=== PATIENT | female | born 1945 | race Caucasian/White ===

== ENCOUNTER 2016-07-16 07:57 | Day surgery (SDC) | payer MEDICARE, BC ==
[~2016-07-16] VITALS: Ht 154.9 cm; Wt 48.2 kg
[~2016-07-16 07:57] MED LIST: KLONOPIN0.5 MG PO; PHENERGAN25 M1 PO; PREMARIN0.3 MG PO; SYNTHROID75 MCG PO; SYNTHROID88 MCG PO; ULTRAM50 MG PO; VITAMIN D31000 UNIT PO; ZANTAC150 MG PO
[2016-07-16] MEDS ORDERED: SYNTHROID88 MCG PO (08:42)
[2016-07-16] MEDS ORDERED: PRAVACHOL20 MG PO (08:45)
[2016-07-16] MEDS ORDERED: BAYER CHEWABLE81 MG PO (08:45)
[2016-07-16 08:51] VITALS: BP 108/73; Ht 154.9 cm; Wt 48.2 kg
[2016-07-16 09:38] LABS: HEMATOCRIT 41.5 % (36.0-48.0); HEMOGLOBIN 13.6 g/dL (12-16); MCH 28.3 pg (26.0-34.0); MCHC 32.8 g/dL (31.0-37.0); MCV 86.3 fL (80.0-100.0); MEAN PLATELET VOLUME 11.3 fL (7.4-10.4); RBC 4.81 10x6/uL (4.00-5.40); RDW 13.4 % (11.5-14.5); WBC 4.9 10x3/uL (4.8-10.8)
--- NOTE | 2016-07-16 11:45 | NUR ---
PT SITTING UP WITH HOB ELEVATED. NO C/O N/V. TOLERATING FULL LIQUIDS. VSS. WILL MONITOR.
--- NOTE | 2016-07-16 12:02 | NUR ---
1200-IV D/C'D, PT TOLERATED. CATHETER INTACT NOW UP OOB. VOIDED WITHOUT DIFFICULTY. DRESSING FOR DISCHARGE.
--- NOTE | 2016-07-16 12:13 | NUR ---
1210- DISCHARGE INSTRUCTIONS COMPLETED, PAPERWORK SIGNED. VERBALIZES UNDERSTANDING.
--- NOTE | 2016-09-09 10:17 | OP ---
PATIENT NAME: UBALDO MOORE MEDICAL RECORD: [id number] :41 LOCATION:D.OPS ADMISSION DATE: SURGEON: HIRAM WOODARD MD DATE OF OPERATION: 07/16/2016 PREOPERATIVE DIAGNOSIS: History of Shi esophagus. POSTOPERATIVE DIAGNOSIS: History of Shi esophagus with apparent regression some of the Shi esophagus. PROCEDURE: Esophagogastroduodenoscopy with antral and distal esophageal biopsies. SURGEON: Hiram Woodard MD BITUMEN PLANT OPERATOR: None. BLOOD LOSS: Minimal. ANESTHESIA: IV sedation. COMPLICATIONS: None. Reason for the anesthesia staff being present during the procedure includes anxiety regarding the procedure. ENDOSCOPIC COURSE: The patient was conveyed to the endoscopy suite electively on 07/16/2016. IV sedation was induced by the anesthesia staff. A bite block was inserted. A gastroscope was inserted into the mouth. It was advanced easily into the hypopharynx. The esophagus was easily intubated as were the stomach and duodenum. Upon withdrawal, retroflexed and angulus views were obtained. Antral biopsies were obtained. Four quadrant biopsies were obtained in the distal esophagus. The Shi's was short segment Shi's. The endoscope was then withdrawn under direct vision. I will see the patient in my office in 2-3 weeks to discuss the results of the biopsies. I will plan for her next surveillance upper endoscopy to be in the GI lab in 2 years. TRANSINT:[id number] Voice Confirmation ID: [id number] DOCUMENT ID: [id number] HIRAM WOODARD MD at 1017 CC: ANIL AGUILAR DO [id number] DICTATION DATE: 07/16/16 1104 LAP HAND TOOL: 07/16/16 1117 [facility] 07/16/[address] [facility] [address] [place] [address]
--- NOTE | 2016-09-09 10:17 | HP ---
PATIENT: UBALDO MOORE MEDICAL RECORD: [id number] ACCOUNT: [id number] LOCATION:[facility] : 41 ADMISSION DATE: 07/16/16 HISTORY AND PHYSICAL EXAMINATION CHIEF COMPLAINT: Shi's. HISTORY OF PRESENT ILLNESS: The patient has Shi's esophagus. She is here for surveillance upper endoscopy with biopsies. She does not have much reflux. She does have some epigastric abdominal pain. No nausea, no vomiting. No blood in her stools. The patient has undergone a Michel fundoplication by Dr. Osman in the past. SOCIAL HISTORY: Former smoker. 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 She reported to the nurse watch electrician that she had some reflux, fibromyalgia, arthritis, anxiety, depression, spinal stenosis, hysterectomy, partial thyroidectomy, ORIF of hip, also ORIF of left shoulder. REVIEW OF SYSTEMS: Negative for coronary artery disease or hypertension. Negative for renal disease or hepatitis. PHYSICAL EXAMINATION: GENERAL: The patient does not appear acutely ill. She does not appear chronically ill. VITAL SIGNS: Reviewed. HEAD: External ears appear normal. EYES: Extraocular movements are intact. NECK: Trachea is midline. CHEST: No intercostal retractions. PULMONARY: Nonlabored, no stridor. ABDOMEN: Tenderness in the epigastrium. IMPRESSION: Shi esophagus. PLAN: Surveillance upper endoscopy with biopsies. TRANSINT:[id number] Voice Confirmation ID: [id number] DOCUMENT ID: [id number] CARMELO WOODARD MD at 1017 CC: ANIL AGUILAR DO [id number] DICTATION DATE: 07/16/16 1050 HALL TENDER: 07/16/16 1102 [facility] 07/16/16 [id number] [place] [address]
== END 2016-07-16 12:15 | disposition home or self-care (01) ==
LOC: D.OPS 07:57
PROVIDERS: Anesthesiology
DX: K22.70 Barrett's esophagus without dysplasia (principal); K21.9 Gastro-esophageal reflux disease without esophagitis; K29.50 Unspecified chronic gastritis without bleeding; E03.9 Hypothyroidism, unspecified; M79.7 Fibromyalgia; M19.90 Unspecified osteoarthritis, unspecified site; F32.9 Major depressive disorder, single episode, unspecified; F41.9 Anxiety disorder, unspecified; M48.00 Spinal stenosis, site unspecified; Z86.73 Personal history of transient ischemic attack (TIA), and cerebral infarction without residual deficits; Z87.891 Personal history of nicotine dependence

== ENCOUNTER → 2016-07-29 08:18 | Outpatient (CLI) | payer MEDICARE, BC ==
[~2016-07-29 08:18] MED LIST changes: +BAYER CHEWABLE81 MG PO; +PRAVACHOL20 MG PO
== END | disposition home or self-care (01) ==
LOC: D.CT 07-24 09:00
DX: R10.9 Unspecified abdominal pain (principal)

== ENCOUNTER → 2016-08-03 07:57 | Outpatient (CLI) | payer MEDICARE, BC | END | disposition home or self-care (01) | LOC: D.NM 07-29 08:15 | DX: R07.81 Pleurodynia (principal) ==

== ENCOUNTER → 2016-11-30 08:58 | Outpatient (CLI) | payer MEDICARE, BC | END | disposition home or self-care (01) | LOC: D.CT 08:58 | DX: R91.1 Solitary pulmonary nodule (principal) ==

== ENCOUNTER → 2017-04-14 11:57 | Outpatient (CLI) | payer MEDICARE, BC | END | disposition home or self-care (01) | LOC: D.RAD 11:45 | DX: R93.7 Abnormal findings on diagnostic imaging of other parts of musculoskeletal system (principal) ==

== ENCOUNTER → 2017-04-26 16:18 | Outpatient (CLI) | payer MEDICARE, BC | END | disposition home or self-care (01) | LOC: D.MAMMO 15:00 | DX: Z12.31 Encounter for screening mammogram for malignant neoplasm of breast (principal) ==

== ENCOUNTER → 2017-08-11 15:44 | Outpatient (CLI) | payer MEDICARE, BC | END | disposition home or self-care (01) | LOC: D.MAMMO 13:00 | DX: Z12.31 Encounter for screening mammogram for malignant neoplasm of breast (principal) ==

== ENCOUNTER 2017-10-17 19:16 | Emergency (ER) | payer MEDICARE, BC ==
[2017-10-17 19:47] LABS: BASOPHILS 0.8 % (0-2); EOSINOPHILS 3.5 % (0-7); HEMATOCRIT 40.3 % (36.0-48.0); HEMOGLOBIN 12.9 g/dL (12-16); IMMATURE GRANULOCYTES 0.3 % (0-5); LYMPHOCYTES 36.3 % (15-50); MCV 87.4 fL (80.0-100.0); MEAN PLATELET VOLUME 10.3 fL (7.4-10.4); MONOCYTES 9.6 % (2-11); NEUTROPHILS 49.5 % (40-80); PLATELET COUNT 340 10x3/uL (130-400); RBC 4.61 10x6/uL (4.00-5.40); RDW 14.9 % (11.5-14.5); WBC 7.8 10x3/uL (4.8-10.8)
[2017-10-17 20:00] LABS: ALBUMIN 3.7 g/dL (3.4-5.0); ALKALINE PHOSPHATASE 89 U/L (46-116); ALT (SGPT) 25 U/L (10-68); BILIRUBIN - TOTAL 0.33 mg/dL (0.2-1.3); CALC OSMOLALITY 285 mosm/kg (275-300); CALCIUM 9.1 mg/dL (8.5-10.1); CARBON DIOXIDE 26.8 mmol/L (21.0-32.0); CHLORIDE - SERUM 105 mmol/L (98-107); CREATININE - SERUM 0.7 mg/dL (0.6-1.3); GLUCOSE 98 mg/dL (74-106); POTASSIUM - SERUM 3.4 mmol/L (3.5-5.1); PROTEIN - SERUM 7.6 g/dL (6.4-8.2); SODIUM 143 mmol/L (136-145); UREA NITROGEN 14 mg/dL (7-18); eGFR NON AFRICAN AMERICAN 87 mL/min (90-120)
[2017-10-17 20:08] LABS: CREATINE KINASE 38 UL (21-215); MAGNESIUM - SERUM 1.9 mg/dL (1.8-2.4); THYROID STIMULATING HORMONE 7.76 uIU/mL (0.36-3.74)
[2017-10-17 20:11] LABS: TROPONIN-I < 0.017 ng/mL (0.000-0.060)
== END 2017-10-17 22:35 | disposition home or self-care (01) ==
LOC: D.ER 19:16
PROVIDERS: Emergency Medicine
DX: J44.1 Chronic obstructive pulmonary disease with (acute) exacerbation (principal); E87.6 Hypokalemia; E03.9 Hypothyroidism, unspecified

== ENCOUNTER → 2019-03-06 09:51 | Outpatient (CLI) | payer MEDICARE, BC | END | disposition home or self-care (01) | LOC: D.RT 12-22 14:00 → D.RAD 12-22 15:00 → D.LAB 12-22 15:15 → D.RT 09:51 | PROVIDERS: ATTEND Internal Medicine Pulmonary Disease | DX: J44.9 Chronic obstructive pulmonary disease, unspecified (principal) ==

== ENCOUNTER → 2019-07-14 08:30 | Outpatient (CLI) | payer MEDICARE, BC | END | disposition home or self-care (01) | LOC: D.RAD 08:30 | PROVIDERS: ATTEND Surgery | DX: K21.0 Gastro-esophageal reflux disease with esophagitis (principal) ==

== ENCOUNTER 2019-09-19 08:02 | Day surgery (SDC) | payer MEDICARE, BC ==
[~2019-09-19] VITALS: Ht 154.9 cm; Wt 54.5 kg
--- NOTE | ~2019-09-19 | OP ---
PATIENT NAME: UBALDO MOORE MEDICAL RECORD: [id number] :41 LOCATION:D.OPS ADMISSION DATE: SURGEON: CARMELO WOODARD MD DATE OF OPERATION: 09/19/2019 PREOPERATIVE DIAGNOSES: 1. History of Shi's esophagus. 2. Dysphagia at the level of the cricopharyngeus. POSTOPERATIVE DIAGNOSES: 1. History of Shi's esophagus. 2. Dysphagia at the level of the cricopharyngeus with probable regression of Shi's to some degree. 3. Bulbar duodenitis with erosions, moderate. 4. Duodenal diverticulum. 5. No evidence of esophageal stricture. 6. Intact Michel fundoplication. PROCEDURE: 1. Esophagogastroduodenoscopy with antral and distal esophageal biopsies. 2. Esophageal dilation with a pryoduv-bpi-pvzrrwis balloon to [address]. SURGEON: Carmelo Woodard MD DRYING CAN WORKER: None. BLOOD LOSS: Minimal. ANESTHESIA: IV sedation. COMPLICATIONS: None. The risks, possible complications and alternatives to the procedure were explained to the patient. She elects to procedure. ENDOSCOPIC COURSE: The patient was conveyed to endoscopy suite electively on 09/19/2019. IV sedation was induced by the anesthesia staff. A bite block was inserted. A gastroscope was inserted into the mouth. It was advanced easily into the hypopharynx. The esophagus was easily intubated as were the stomach and duodenum. Upon withdrawal, retroflexed and angulus views were obtained. Antral biopsies were obtained. I then withdrew into the cardia of the stomach. I advanced a gxclyhz-yrq-xerqdfau balloon into the cardia. I then sequentially dilated the entire length of the esophagus to [address]. The gastroscope and balloon dilator were then removed. I then readvanced the gastroscope. There had been no evidence of false passage or perforation. Multiple endoscopic biopsies of the EG junction were performed to evaluate the patient's Shi's for dysplasia. The gastroscope was then withdrawn under direct vision. I will see the patient in my office in 2-3 weeks. If there is no dysplasia present on the biopsies, I will likely plan for her next surveillance upper endoscopy with biopsies to take place in 3 years. TRANSINT:[id number] Voice Confirmation ID: [id number] DOCUMENT ID: [id number] OPERATIVE REPORT [id number] MOOREUBALDO HUMPHRIES ROBERT MD CC: ANIL AGUILAR DO [id number] DICTATION DATE: 09/19/19 1105 AUTOMOTIVE SALES PROFESSIONAL: 09/19/19 1610 [facility] 09/19/19 [id number] [place] [address]
[2019-09-19 08:33] LABS: BASOPHILS 1.3 % (0-2); HEMATOCRIT 46.1 % (36.0-48.0); HEMOGLOBIN 15.2 g/dL (12-16); IMMATURE GRANULOCYTES 0.2 % (0-5); LYMPHOCYTES 26.9 % (15-50); MCV 85.1 fL (80.0-100.0); MONOCYTES 11.2 % (2-11); NEUTROPHILS 54.4 % (40-80); RBC 5.42 10x6/uL (4.00-5.40); RDW 14.7 % (11.5-14.5); WBC 6.4 10x3/uL (4.8-10.8)
[2019-09-19 08:40] LABS: PLATELET COUNT 240 10x3/uL (130-400)
[2019-09-19 08:51] LABS: ANION GAP 13.5 mmol/L (8-16); CARBON DIOXIDE 28.3 mmol/L (21.0-32.0); CREATININE - SERUM 0.9 mg/dL (0.6-1.3); POTASSIUM - SERUM 3.8 mmol/L (3.5-5.1)
[2019-09-19 09:15] VITALS: BP 125/73; Ht 154.9 cm; Wt 54.5 kg
--- NOTE | 2019-09-19 11:42 | NUR ---
DC INSTRUCTIONS GIVEN TO PT. STATES UNDERSTANDING. DC'D IV CATH FULLY INTACT. PT LEFT UNIT VIA WC AT 1141
--- NOTE | 2019-09-19 14:24 | HP ---
PATIENT: UBALDO MOORE MEDICAL RECORD: [id number] ACCOUNT: [id number] LOCATION:[facility] : 41 ADMISSION DATE: 09/19/19 PCP: ANIL AGUILAR DO HISTORY AND PHYSICAL EXAMINATION CHIEF COMPLAINT: Shi's. HISTORY OF PRESENT ILLNESS: The patient is having dysphagia at the level of cricopharyngeus. She also has a history of Shi's esophagus. She has undergone a Michel fundoplication by Dr. Osman in the past. 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 REVIEW OF SYSTEMS: Negative for renal disease or hepatitis. SOCIAL HISTORY: Ex-smoker. PHYSICAL EXAMINATION: GENERAL: The patient does not appear acutely ill. She does not appear chronically ill. VITAL SIGNS: Reviewed. EARS: External ears appear normal. EYES: Extraocular movements are intact. NECK: Trachea is midline. CHEST: No intercostal retractions. PULMONARY: Nonlabored, no stridor. IMPRESSION: 1. History of Shi's esophagus. 2. Dysphagia. PLAN: EGD with biopsies and esophageal dilation. TRANSINT:[id number] Voice Confirmation ID: [id number] DOCUMENT ID: [id number] CARMELO WOODARD MD at 1424 CC: [id number] DICTATION DATE: 09/19/19 1034 PROGRAM MEDICAL DIRECTOR: 09/19/19 1119 [facility] 09/19/19 [place] [id number] [place] [id number]
== END 2019-09-19 11:41 | disposition home or self-care (01) ==
LOC: D.OPS 08:02
PROVIDERS: Anesthesiology; ATTEND Surgery
DX: R13.19 Other dysphagia (principal); K29.80 Duodenitis without bleeding; K57.10 Diverticulosis of small intestine without perforation or abscess without bleeding; E03.9 Hypothyroidism, unspecified; K21.9 Gastro-esophageal reflux disease without esophagitis; Z87.19 Personal history of other diseases of the digestive system

== ENCOUNTER → 2019-11-20 11:41 | Outpatient (CLI) | payer MEDICARE, BC ==
[2019-09-19 09:15] VITALS: BMI 22.7
== END | disposition home or self-care (01) ==
LOC: D.NM 11:30
PROVIDERS: ATTEND Family Medicine
DX: K21.0 Gastro-esophageal reflux disease with esophagitis (principal); E03.9 Hypothyroidism, unspecified; I10 Essential (primary) hypertension; E78.2 Mixed hyperlipidemia; J45.909 Unspecified asthma, uncomplicated; G60.3 Idiopathic progressive neuropathy

== ENCOUNTER 2019-11-29 09:00 | Outpatient (CLI) | payer MEDICARE, BC ==
[2019-09-19 09:15] VITALS: BMI 22.7
== END 2019-11-29 10:00 | disposition home or self-care (01) ==
LOC: D.MAMMO 09:00
PROVIDERS: ATTEND Family Medicine
DX: Z12.31 Encounter for screening mammogram for malignant neoplasm of breast (principal)